=== PATIENT | female | born 1970 | race Asian ===

== ENCOUNTER → 2024-08-23 | Outpatient (CLI) | payer BC, SELFPAY ==
--- NOTE | 2024-08-23 16:00 | XR_ITS ---
Examination: CT cervical spine without contrast 2-D sagittal reconstructions 2-D coronal reconstructions 3-D reconstructions. Exam date and time:August 23, 2024 1619 hours INDICATIONS: Neck pain beginning 2 years ago CTDI:vol (mGy) 13 DLP: (mGycm) 290 Technique: Multiple 2 mm axial sections of the cervical spine have been obtained. The coronal and sagittal reconstructions have been obtained. 3-D reconstructions have been obtained. Low dose protocols were performed. One or more of the following dose reduction techniques were used; automated exposure control, adjustment of the mA and/or KV according to patient size, use of iterative reconstruction technique. Findings: Axial sections demonstrate intact base of the skull. C1 exhibit satisfactory relationship to the odontoid. No acute cervical vertebral body fracture seen. Alignment posterior spinous processes satisfactory. Mild disc narrowing C3-C4 Mild cervical spondylosis C3-C4 moderate right neural foraminal stenosis C4-C5 moderate right neural foraminal stenosis Impression: No acute cervical fracture. C3-C4 moderate right neural foraminal stenosis C4-C5 moderate right neural foraminal stenosis
== END | disposition home or self-care (01) ==
LOC: CCTX 15:24
PROVIDERS: PCP Physician Assistant; Referring Provider Physician Assistant; Visit Provider Physician Assistant
DX: M48.02 Spinal stenosis, cervical region (principal)
CPT/HCPCS: 72125

== ENCOUNTER → 2024-12-12 | Outpatient (CLI) | payer BC, SELFPAY ==
--- NOTE | 2024-12-12 14:37 | XR_ITS ---
Examination: MRI cervical spine without intravenous contrast Date and time of exam: December 12, 2024 1443 hours Comparison January 15, 2024 INDICATIONS: Neck pain radiating down the right shoulder right arm beginning one year ago Technique: Multiple axial and sagittal sections of the cervical spine to been obtained. T2 weighted sagittal sections, TR 3, 270, TE 117 T1-weighted sagittal sections, TR 500, TE 11 T1-weighted axial sections, TR 607, TE 12, axial sections TR 18, TE 27 and T2 weighted transverse sections, TR 3920, TE 122. Findings: Adequate alignment cervical vertebral bodies Moderate disc narrowing C3-C4 No cervical fracture Diffuse cervical disc desiccation No localized enlargement cervical cord C2-C3 no disc protrusion C3-C4 5 mm central subarticular osteophyte disc complex, indenting the ventral margin cervical cord, advanced right moderate left neural foraminal stenosis C4-C5 3 mm central subarticular osteophyte disc complex, advanced bilateral neural foraminal stenosis C5-C6 5 mm central disc protrusion with advanced bilateral neural foraminal stenosis C6-C7 advanced bilateral neural foraminal stenosis C7-T1 no disc protrusion IMPRESSION: Advanced acquired cervical spinal stenosis as above
== END | disposition home or self-care (01) ==
PROVIDERS: PCP Physician Assistant; Referring Provider Physician Assistant; Visit Provider Physician Assistant
DX: M48.02 Spinal stenosis, cervical region (principal)
CPT/HCPCS: 72141

== ENCOUNTER 2025-01-23 04:33 | Emergency (ER) | payer BC, SELFPAY ==
[2025-01-23 04:34] VITALS: BMI 23.0
[2025-01-23 04:48] VITALS: BP 164/106; PULSE 64; RESP 20; TEMP 36.8; O2SAT 96
--- NOTE | 2025-01-23 04:54 | PD.EDRME ---
Rapid Medical Screening Exam RME Arrival date/time: 01/23/25 04:33 Chief Complaint: Abdominal Pain Vital signs: Vital Signs Temperature 98.2 F 01/23/25 04:48 Pulse Rate 64 01/23/25 04:48 Respiratory Rate 20 01/23/25 04:48 Blood Pressure 164/106 H 01/23/25 04:48 Pulse Oximetry (%) 96 01/23/25 04:48 Oxygen Delivery Method Room Air 01/23/25 04:48 E Narrative: Epigastric/RUQ abdominal pain and nausea/vomiting since 2099 last night. No medications since onset.
--- NOTE | 2025-01-23 04:55 | XR_ITS ---
Examination: Abdomen sonogram, Limited Date and time of exam: January 23, 2025 0521 hours INDICATIONS: Right upper abdominal pain and vomiting and nausea beginning 9:00 PM last night Technique: Real-time smith scale transabdominal sonographic images of the upper abdomen obtained. Findings: Normal gallbladder Normal common bile duct report 3 4 cm Pancreatic head 1.4 cm Liver 12 cm 9 mm left lobe liver cyst Normal hepatopedal portal venous flow Patent IVC IMPRESSION: Normal gallbladder. Normal common bile duct Liver normal size no solid liver lesions
--- NOTE | 2025-01-23 04:55 | EKG_ITS ---
[facility] Test Date: 2025-01-23 Pat Name: THU TRINIDAD Department: Room: - Gender: Female [employer]: : 1970 Requested By: Allan Ivey Order Number: [id number] Reading MD: Allan Ivey Measurements Intervals [place] Rate: 84 P: 73 UT: 188 QRS: 100 QRSD: 104 T: 70 QT: 374 QTc: 442 Interpretive Statements SINUS RHYTHM WITH FREQUENT SUPRAVENTRICULAR PREMATURE COMPLEXES BORDERLINE RIGHT AXIS DEVIATION [QRS AXIS > 90] INCOMPLETE RIGHT BUNDLE BRANCH BLOCK [90+ ms QRS DURATION, TERMINAL R IN V1/V2, 40+ ms S IN I/aVL/V4/V5/V6] ABNORMAL RHYTHM ECG Compared to ECG 08/31/2019 15:18:05 Incomplete right bundle-branch block now present /store/S0/[id number]/ecg/[id number].pdf
[2025-01-23 05:30] LABS: Collection Type, Urine Clean Catch; WBC,Urine 0 /hpf (0-5)
[2025-01-23] MEDS: HYDROcodone/APAP 5/325 TABLET 1 TAB PO (05:42)
[2025-01-23] MEDS: ONDANSETRON ODT 4 MG TABRAP PO (05:43)
[2025-01-23] MEDS: KETOROLAC INJ 60 MG/2 ML VIAL 30 MG IM (05:43)
[2025-01-23 05:56] LABS: Bilirubin,Urine Negative (Negative); Blood,Urine 1+ (Negative); Clarity,Urine Turbid (Clear/Hazy); Color,Urine Lt-Yellow (Lt Yel-Yel); Glucose, Urine Negative (Negative); Ketones,Urine Negative (Negative); Leukocyte Esterase,Urine Negative (Negative); Nitrite,Urine Negative (Negative); PH,Urine 7.5 (5.0-7.0); Protein,Urine 2+ (Neg - Trace); RBC,Urine 34 /hpf (0-3); Specific Gravity,Urine 1.016 (1.001-1.035); Squamous Epithelial Cell,Urine < 1 /hpf (0-5); Urobilinogen,Urine Negative mg/dL (0.0-1.0)
--- NOTE | 2025-01-23 06:22 | PRELIM_ITS ---
Gallbladder ultrasound. January 23, 2025 at 0521 hours Clinical history: Epigastric, right upper quadrant pain. Comparison: No prior study is available for comparison. Findings: Gallbladder wall is 2 mm thick. No gallstones or sludge are seen. Common bile duct is 3 mm in diameter. Main portal vein is antegrade. Liver is 12 cm long. No free fluid. Pancreas is unremarkable to the extent visualized. A 9 mm cyst in the left hepatic lobe. Impression: Normal gallbladder. Report Electronically Signed By: Rickie Lang 01/23/2025 6:22:25 AM [EST]
[2025-01-23 06:36] LABS: Basophils % (Auto) 0 % (0-2.5); Eosinophils % (Auto) 0 % (0-10); Hematocrit 39.6 % (36.0-46.0); Immature Granulocytes % (Auto) 0 % (0-0); Immature Granulocytes Auto 0.02 Thou/mm3 (0.00-0.00); Lymphocytes # (Auto) 0.9 Thou/mm3 (1.0-4.8); Lymphocytes % (Auto) 9 % (10-50); Mean Corpuscular HGB Conc 35.4 g/dl (31.0-37.0); Mean Corpuscular Volume 88 fL (80-100); Monocytes # (Auto) 0.2 Thou/mm3 (0.0-0.8); Monocytes % (Auto) 2 % (0-12); Neutrophils # (Auto) 9.1 Thou/mm3 (1.8-7.7); Neutrophils % (Auto) 89 % (37-80); Nucleated Red Blood Cell % 0 /100 WBC (0); Platelet Count 198 Thou/mm3 (140-440); RDW Standard Deviation 38.8 fL (36.4-46.3); Red Blood Count 4.51 Miln/mm3 (4.00-5.20); White Blood Count 10.2 Thou/mm3 (3.6-11.0)
[2025-01-23 06:49] LABS: Alanine Aminotransferase 19 U/L (10-49); Albumin, Serum 4.7 gm/dL (3.5-5.0); Albumin/Globulin Ratio 1.4 (1.2-2.2); Alkaline Phosphatase 72 U/L (46-116); Anion Gap 7 (7-16); Aspartate Amino Transferase 21 U/L (0-34); BUN/Creatinine Ratio 13 Ratio (12-20); Bilirubin,Total 1.2 mg/dL (0.3-1.2); Blood Urea Nitrogen 10 mg/dL (9-23); Calcium 9.9 mg/dL (8.3-10.6); Calcium (Corrected) 9.9 mg/dL (8.5-10.1); Carbon Dioxide 30.7 mMol/L (20.0-31.0); Chloride 97 mMol/L (98-107); Creatinine (Component) 0.8 mg/dL (0.6-1.3); Globulin 3.4 gm/dL (2.3-3.5); Glucose 151 mg/dL (74-106); Lipase 37 U/L (12-53); Osmolality,Calculated 272 (275-295); Potassium 3.8 mMol/L (3.4-5.1); Sodium 135 mMol/L (136-145); Total Protein 8.1 gm/dL (5.7-8.2); Troponin I < 0.002 ng/mL (0.0-0.045); eGFR > 60 See Note
[2025-01-23 08:15] VITALS: BP 134/78; PULSE 96; RESP 18; TEMP 36.6; O2SAT 98
--- NOTE | 2025-01-23 08:20 | PD.EDABDPN ---
ED Abdominal Pain RME/HPI General Chief Complaint: Abdominal Pain Stated complaint: ABD PAIN N/V SINCE LAST NIGHT Time seen by provider: 01/23/25 08:20 Arrival date/time: 01/23/25 04:33 RME / HPI RME / HPI narrative: Epigastric/RUQ abdominal pain and nausea/vomiting since 2099 last night. No medications since onset. DR. VEGA MAIN ED EVALUATION: 54 year old female presents to the Emergency Department accompanied by the with complaint of left-sided abdominal pain. She states the pain started last night at 9 PM and it was really bad , she is doing better now. Associated symptoms include nausea and vomiting; but no blood in the emesis. She states she was having trouble keeping stuff down but her vomiting is now better and she can drink water. No diarrhea, constipation, or blood in the stools. There was blood in the urine, patient is aware she states they always find blood in urine but unknown why. She had a couple of kidney infections but they have not told her why there is blood in the urine. Last menstrual period was 2 years ago, menopause. Related Data Home Medications ?Medication ?Instructions ?Recorded ?Confirmed calcium carbonate (Calcium 500) 500 mg PO QDAY 08/31/19 08/31/19 multivitamin (Multiple Vitamins 1 tab PO QDAY 08/31/19 08/31/19 tablet) Previous Rx's ?Medication ?Instructions ?Recorded ibuprofen 600 mg tablet 600 mg PO Q6H #30 tabs 09/02/19 Allergies Allergy/AdvReac Type Severity Reaction Status Date / Time No Known Allergies Allergy Verified 01/23/25 04:35 Review of Systems Review of Systems Systems Reviewed: All systems reviewed, normal except as documented Past Medical History Past Medical History CARDIAC: Positive Cardiac Disorders and Hypercholesterolemia (diet controlled) REPRODUCTIVE: Positive Previous Pregnancies (X3) Family History FAMILY HISTORY: Positive Family Cardiac Disorders (MOTHER (HTN)), Family Cancer (FATHER (COLON, LUNG)) and Family Surgery (FATHER) Surgical History SURGICAL: Positive Section (X2) Social History SMOKING STATUS: Never smoker SUBSTANCE USE: does not use ALCOHOL: Never ED Exam Narrative Physical exam: GENERAL APPEARANCE: alert and oriented x 4, well-developed, well-nourished, no acute distress VITALS: All vitals were reviewed and the pulse ox is 98% on room air, which is normal according to my interpretation. HEENT: Normocephalic, atraumatic; pupils equal, round, reactive to light; EOMI; mucous membranes pink, moist; oropharynx clear NECK: Supple LUNGS: CTABL; no wheezes, no rales, no rhonchi HEART: Regular rate, regular rhythm; normal S1, S2; no murmurs ABDOMEN: non distended; normal BS; soft, no tenderness, no guarding, no rebound; no masses, no organomegaly, no hernia BACK: no CVA tenderness EXTREMITIES: atraumatic; no edema NEUROLOGIC: awake; alert and oriented x4; cranial nerves II-XII grossly intact; no focal sensory or motor deficits PSYCHIATRIC: appropriate mood and affect SKIN: warm, dry, normal color; no rashes Course Quality Measures none Orders Category Date Time Status EKG (ED ONLY) *Do not use* NOW Care 01/23/25 04:[address] abdomen pelvis wo con Stat Exams 01/23/25 08:20 Completed EKG (ED Only) Stat Exams 01/23/25 04:55 Draft US gall bladder Stat Exams 01/23/25 04:55 Completed CBC Stat Lab 01/23/25 05:21 Completed CMP [Comprehensive Metabolic Panel] Stat Lab 01/23/25 05:21 Completed Lipase Stat Lab 01/23/25 05:21 Completed Troponin I Stat Lab 01/23/25 05:21 Completed UA [Urinalysis] Stat Lab 01/23/25 05:20 Completed HYDROcodone*/APAP 5/325 [[place] 5/325] Med 01/23/25 04:55 Discontinued 1 tab PO X1 ONE Ketorolac Inj [Toradol Inj] Med 01/23/25 04:55 Discontinued 30 mg IM X1 ONE Ondansetron Odt [Zofran Odt] Med 01/23/25 04:55 Discontinued 4 mg PO X1 ONE Vital Signs Vital signs: Vital Signs Temperature 98.2 F 01/23/25 04:48 Pulse Rate 64 01/23/25 04:48 Respiratory Rate 20 01/23/25 04:48 Blood Pressure 164/106 H 01/23/25 04:48 Pulse Oximetry (%) 96 01/23/25 04:48 Oxygen Delivery Method Room Air 01/23/25 04:48 Abdominal Pain MDM MDM Narrative MDM Narrative:: I, Shira Christianson am scribing for and in the presence of Dr. Vega. Patient data External records reviewed:: [facility] previous records (Reviewed LEEP procedure note by Dr. Watt, dated 09/05/19.) Clinical information provided by:: patient Social determinants that could affect healthcare access:: none Patient has the following chronic illnesses:: Denies any PMHx, surgeries, daily medications, or known allergies. How is presenting disease/condition affected by chronic disease/condition?: no chronic disease Evaluation data The following diagnostics were reviewed and interpreted by me:: lab results, radiology exam(s) and EKG tracing(s) (EKG#1: EKG at 0503 hours. Interpreted by me: sinus rhythm, rate 84, occasional PVCs, incomplete right bundle branch block) Lab and/or radiology exams considered but not ordered:: none Interpretation Summary: Procedure(s): US gall bladder Accession Number(s): [id number] cc: Jumana Calixto; Simón Rivera MD; Allan Ivey PA-C~ Examination: Abdomen sonogram, Limited Date and time of exam: January 23, 2025 0521 hours INDICATIONS: Right upper abdominal pain and vomiting and nausea beginning 9:00 PM last night Technique: Real-time smith scale transabdominal sonographic images of the upper abdomen obtained. Findings: Normal gallbladder Normal common bile duct report 3 4 cm Pancreatic head 1.4 cm Liver 12 cm 9 mm left lobe liver cyst Normal hepatopedal portal venous flow Patent IVC IMPRESSION: Normal gallbladder. Normal common bile duct Liver normal size no solid liver lesions Dictated By: Simón Rivera MD Procedure(s): CT abdomen pelvis wo con Accession Number(s): [id number] cc: Jumana Calixto; Simón Rivera MD; Sophia Vega MD~ Examination: CT abdomen and pelvis without contrast. Coronal 3-D reconstructions. Sagittal 2-D reconstructions. Date and time of exam:January 23, 2025 0833 hours COMPARISON: 06/17/2010 INDICATIONS: Onset hematuria left flank pain today with vomiting CTDI: vol (mGy): 5.50 DLP: (mGycm): 271 Technique: Axial images of the abdomen have been obtained, 3 mm slice thickness Intravenous contrast material has not been administered. Low dose protocols were performed. One or more of the following dose reduction techniques were used; automated exposure control, adjustment of the mA and/or KV according to patient size, use of iterative reconstruction technique. Findings: 14 mm liver cyst versus hemangioma No gallstones Spleen is not enlarged No pancreatic or adrenal mass No renal or ureteral calculi, no hydronephrosis Aorta normal size No pericecal inflammatory change No bowel obstruction No diverticulitis Partially retroverted uterus no pelvic mass No bladder mass or bladder calculi Osseous structures are intact IMPRESSION: No renal or ureteral calculi, no hydronephrosis No CT findings of appendicitis bowel obstruction or diverticulitis Dictated By: Simón Rivera MD Medications / Prescriptions Medications or Prescriptions considered but not ordered:: none Medication administrations:: Medication Administration History Discontinued Medications Hydrocodone Bitart/Acetaminophen (Hydrocodone/Apap 5/325 Tablet) 1 tab PO X1 ONE Stop: 01/23/25 04:56 Last Admin: 01/23/25 05:42 Dose: 1 tab Documented By: MARIETTA Ketorolac Tromethamine (Ketorolac Inj 60 Mg/2 Ml Vial) 30 mg IM X1 ONE Stop: 01/23/25 04:56 Last Admin: 01/23/25 05:43 Dose: 30 mg Documented By: MARIETTA Ondansetron HCl (Ondansetron Odt 4 Mg Tabrap) 4 mg PO X1 ONE; Protocol Stop: 01/23/25 04:56 Last Admin: 01/23/25 05:43 Dose: 4 mg Documented By: MARIETTA see above Consultations Consultation(s) initiated? (list below): No Diagnosis Differential diagnosis abdominal pain: abdominal pain, calculus of kidney and other (UTI) Most likely diagnosis given after review of the tests above:: Left-sided abdominal pain Hematuria, microscopic Admission Indicated Admission indicated?: not indicated Admission Request Was there a request for admission?: No Disposition Plan Disposition Plan: Discharge Discharge Attestation Discharge Attestation: The patient and all family members were given an opportunity to ask questions and understood the discharge instructions. Discharge instructions specifically effects, indications for sooner follow up or return to the emergency department, and the expected course of current diagnosis. Patient condition: Stable Discharge Plan Plan Patient Disposition: HOME (Self Care) Prescriptions/Referrals Prescriptions/Med Rec: No Action multivitamin [Multiple Vitamins] Tablet 1 tab PO QDAY calcium carbonate [Calcium 500] 500 mg calcium (1,250 mg) Tablet 500 mg PO QDAY ibuprofen 600 mg tablet 600 mg PO Q6H Qty: 30 0RF Referrals: Jumana Calixto PA-C [Primary Care Provider] - In 1 week Problem List Clinical Impression: Left sided abdominal pain, Hematuria, microscopic Patient/Caregiver Discharge Instructions Education Materials: ED Abdominal Pain Unkn Cause Fem, ED Hematuria Print Language: Kinyarwanda Stand Alone Forms: Radha Award Info., Patient Portal Info Letter
[2025-01-23 09:29] VITALS: BP 131/86; PULSE 82; RESP 17; TEMP 36.6; O2SAT 96
== END 2025-01-23 09:33 | disposition home or self-care (01) ==
PROVIDERS: Physician Assistant; Emergency Provider Emergency Medicine; PCP Physician Assistant
DX: R10.11 Right upper quadrant pain (principal); R31.29 Other microscopic hematuria; R11.2 Nausea with vomiting, unspecified; I49.1 Atrial premature depolarization; I45.10 Unspecified right bundle-branch block; E78.00 Pure hypercholesterolemia, unspecified
CPT/HCPCS: 36415; 74176; 76705; 80053; 81001; 83690; 84484; 85025; 96372; 99284; J1885; Q0162; A9270